=== PATIENT | female | born 1990 | race Caucasian/White ===

== ENCOUNTER 2017-08-15 18:10 | Emergency (ER) | payer OTHER ==
--- NOTE | 2017-08-15 19:45 | ER Document Report ---
ED ENT - General Chief Complaint: Sore Throat Stated Complaint: SORE THROAT,EAR PAIN Time Seen by Provider: 08/15/17 19:38 Mode of Arrival: Ambulatory Information source: Patient Notes: 26-year-old female presented to ED for complaint of cough, cold, congestion, and sore throat 2 weeks with bilateral ear pain. She states that the pain is causing it to have trouble eating and drinking. TRAVEL OUTSIDE OF THE [place] IN LAST 30 DAYS: No - HPI Patient complains to provider of: Ear problem, Nose problem, Throat problem Onset: Other - 2 weeks Onset/Duration: Intermittent Quality of pain: Other - Sore throat and body aches Severity: Moderate Pain Level: 3 Context: Recent Illness Location of pain: Nose, Sinus, Throat Associated symptoms: Cough, Ear pain, Runny nose, Sinus pain, Sore throat Similar symptoms previously: Yes Recently seen / treated by doctor: No - Related Data Allergies/Adverse Reactions: No Known Allergies Allergy (Unverified 08/15/17 18:36) Past Medical History - General Information source: Patient - Social History Smoking Status: Never Smoker Cigarette use (# per day): No Chew tobacco use (# tins/day): No Smoking Education Provided: No Frequency of alcohol use: None Drug Abuse: None Occupation: [employer] Lives with: Family Family History: CAD, CVA, DM, Hyperlipidemia, Hypertension. denies: Arthritis, COPD, Malignancy, Thyroid Disfunction Patient has suicidal ideation: No Patient has homicidal ideation: No - Past Medical History Cardiac Medical History: Reports: None Pulmonary Medical History: Reports: None EENT Medical History: Reports: None Neurological Medical History: Reports: None Endocrine Medical History: Reports: None Renal/ Medical History: Reports: None Malignancy Medical History: Reports: None GI Medical History: Reports: None Musculoskeltal Medical History: Reports None Skin Medical History: Reports None Psychiatric Medical History: Reports: None Traumatic Medical History: Reports: None Infectious Medical History: Reports: None Surgical Hx: Negative Past Surgical History: Reports: None Review of Systems - Review of Systems Constitutional: Recent illness EENT: Ear pain, Nose congestion, Nose discharge, Sinus discharge, Throat pain Cardiovascular: No symptoms reported Respiratory: Cough Gastrointestinal: No symptoms reported Genitourinary: No symptoms reported Female Genitourinary: No symptoms reported Musculoskeletal: No symptoms reported Skin: No symptoms reported Hematologic/Lymphatic: No symptoms reported Neurological/Psychological: No symptoms reported -: Yes All other systems reviewed and negative Physical Exam - Vital signs Vitals: Temp Pulse Resp BP Pulse Ox 98.2 F 88 16 125/72 98 08/15/17 18:52 08/15/17 18:52 08/15/17 18:52 08/15/17 18:52 08/15/17 18:52 Interpretation: Normal - General General appearance: Appears well, Alert - HEENT Head: Normocephalic, Atraumatic Eyes: Normal Pupils: PERRL Ears: Normal External canal: Normal Tympanic membrane: Normal Sinus: Normal Nasal: Purulent discharge, Swelling Mouth/Lips: Normal Mucous membranes: Normal Pharynx: Post nasal drainage Neck: Normal - Respiratory Respiratory status: No respiratory distress Chest status: Nontender Breath sounds: Nonproductive cough Chest palpation: Normal - Cardiovascular Rhythm: Regular Heart sounds: Normal auscultation Murmur: No - Abdominal Inspection: Normal Distension: No distension Bowel sounds: Normal Tenderness: Nontender Organomegaly: No organomegaly - Back Back: Normal, Nontender - Extremities General upper extremity: Normal inspection, Nontender, Normal color, Normal ROM , Normal temperature General lower extremity: Normal inspection, Nontender, Normal color, Normal ROM , Normal temperature, Normal weight bearing. No: Fortino's sign - Neurological Neuro grossly intact: Yes Cognition: Normal Orientation: AAOx4 [place] Coma Scale Eye Opening: Spontaneous Magda Coma Scale Verbal: Oriented [place] Coma Scale Motor: Obeys Commands [place] Coma Scale Total: 15 Speech: Normal Motor strength normal: LUE, RUE, LLE, RLE Sensory: Normal - Psychological Associated symptoms: Normal affect, Normal mood - Skin Skin Temperature: Warm Skin Moisture: Dry Skin Color: Normal Course - Re-evaluation Re-evalutation: 08/15/17 20:49 Assessment consistent with upper respiratory infection. Could not treat patient with cough and cold medicines and let us know when she was not since she has had appeared with more than a month ago. When I ran the urine to check her it showed a UTI also. Patient was treated with Macrobid for the UTI. She was treated with Claritin and Sudafed Mucinex and ibuprofen for her cough and cold symptoms with a viral sore throat. Patient was instructed to follow-up with her primary doctor. - Vital Signs Vital signs: Temp Pulse Resp BP Pulse Ox 97.6 F 84 18 116/80 100 08/15/17 20:44 08/15/17 20:44 08/15/17 20:44 08/15/17 20:44 08/15/17 20:44 - Laboratory Laboratory results interpreted by me: 08/15/17 19:52 Urine Protein 30 H Urine Blood SMALL H Urine Urobilinogen 4.0 H Ur Leukocyte Esterase LARGE H Discharge - Discharge Clinical Impression: Viral sore throat URI (upper respiratory infection) Qualifiers: URI type: unspecified URI Qualified Code(s): J06.9 - Acute upper respiratory infection, unspecified UTI (urinary tract infection) Qualifiers: Urinary tract infection type: site unspecified Hematuria presence: without hematuria Qualified Code(s): N39.0 - Urinary tract infection, site not specified Condition: Stable Disposition: HOME, SELF-CARE Instructions: Family Physicians / Practices Additional Instructions: UPPER RESPIRATORY ILLNESS: You have a viral infection of the respiratory passages -- a "cold." This common infection causes nasal congestion, drainage, and often sore throat and cough. It is highly contagious. The disease usually lasts about 10 to 14 days. There is no "cure" for the viral infection -- it must run its course. If there is a complication, such as bacterial infection in the nose, sinuses, middle ear, or bronchial tubes, antibiotics may be required. The antibiotics won't affect the virus. Drink plenty of fluids. A humidifier may help. An expectorant medication or decongestant may make you more comfortable. Use acetaminophen or ibuprofen for fever or aches. See the doctor if fever persists over two days, if there is any significant worsening of your symptoms, or if you simply fail to improve as expected. URINARY TRACT INFECTION: Your evaluation indicates that you have a urinary tract infection. This is due to germs growing in the bladder. This is a common problem. This infection usually responds quickly to antibiotics. Your antibiotic should be taken exactly as prescribed. Drink plenty of fluids -- three to four quarts a day. Occasionally, a bladder anesthetic will be prescribed to help stop the feeling of urgency until the antibiotic has a chance to clear the infection. This may cause your urine to be dark orange. Certain urine infections require a culture. If the doctor obtained a culture, the results will be back in two days. You should call to see if a change in treatment is needed. A repeat urinalysis after you finish treatment is often recommended. The physician will let you know if further testing is required. Call the doctor if you develop fever, chills, flank pain, inability to urinate, or blood in the urine. NITROFURANTOIN (MACRODANTIN, MACROBID): You have received a prescription for nitrofurantoin (Macrodantin). This antibiotic is used for urinary tract infections. Women who are or nursing should notify the physician before taking this medicine. If you have ever had a problem caused by this medication in the past, be sure the physician is aware of it. Common side effects of this medicine include nausea, vomiting, or decreased appetite. Notify your physician if these side effects become severe. Immediately stop this medicine and call the physician if you develop cough , shortness of breath, chest pain, weakness, jaundice (yellow color of the skin and whites of the eyes), or a skin rash. DECONGESTANT MEDICATION: A decongestant medicine has been prescribed. Often this medicine is combined in the same tablet with an antihistamine or expectorant. This type of medicine is helpful in treating a bad cold or sinus condition, as well as in treatment of the nasal congestion of hay fever. It is not of much benefit for lung infections. Decongestant medicines are related to stimulants. They can cause an increase in blood pressure and heart rate. Persons with heart disease and high blood pressure should not take decongestants without discussing this with the physician. If you develop palpitations, chest pain, headache, or tremors, stop the medicine and consult your physician. COUGH-SUPPRESSANT & EXPECTORANT MEDICATION: You are to use a cough medication as needed for relief of symptoms. This medicine is a combination of an expectorant (to make the mucous thinner and more easily "coughed up") and a cough suppressant (to reduce the frequency of coughing). The cough-suppressant medicine is related to narcotics. You may experience mild nausea and sleepiness. Some patients who are very sensitive to narcotics may have stomach pain from this medicine. Taking the medicine with food reduces these side effects. Do not drive or work with machinery until you know how this medicine affects you. The expectorant should have no side effects. Iodine-containing expectorants (such as organidin) should not be taken by persons with active thyroid disease unless approved by your doctor. Call the doctor if you develop shortness of breath, hives, rash, itching, lightheadedness, or severe nausea and vomiting. USE OF ACETAMINOPHEN (Tylenol): Acetaminophen may be taken for pain relief or fever control. It's much safer than aspirin, offering a wider range of "safe" dosages. It is safe during . Some brand names are Tylenol, Panadol, Datril, Anacin 3, Tempra, and Liquiprin. Acetaminophen can be repeated every four hours. The following are maximum recommended dosages: >89 pounds or adults 650 mg to 900 mg Acetaminophen can be repeated every four hours. Maximum dose not to exceed 4000 mg a day. You have been treated with Claritin, Sudafed, Mucinex, ibuprofen, and Flonase for your cough and cold symptoms. These are all [id number] medications but when you by combination cough and cold medications usually they do not have the correct doses of each medicine. You can also try salt and soda solution gargles for your sore throat which will help to remove the postnasal drip and decrease her pain. 1 quart of water 1 tablespoon of salt 1 teaspoon of baking soda Mixed 3 ingredients together and boil for 1 minute Placed in a covered quart jar Use 1/2 ounce of cold solution to gargle 3 times a day FOLLOW-UP CARE: If you have been referred to a physician for follow-up care, call the physician s office for an appointment as you were instructed or within the next two days. If you experience worsening or a significant change in your symptoms, notify the physician immediately or return to the Emergency Department at any time for re-evaluation. Prescriptions: Nitrofurantoin/Nitrofuran Mac [Macrobid 100 mg Capsule] 1 tab PO BID #20 capsule Forms: Return to Work
[2017-08-15] MEDS ORDERED: PSEUDOEPHEDRINE HCL 30 MG TABLET PO ONE (20:21)
[2017-08-15] MEDS ORDERED: LORATADINE 10 MG TABLET PO ONE (20:21)
[2017-08-15] MEDS ORDERED: IBUPROFEN 600 MG TABLET PO ONE (20:21)
[2017-08-15] MEDS ORDERED: GUAIFENESIN 600 MG TABLET.SA PO ONE (20:21)
[2017-08-15] MEDS ORDERED: FLUTICASONE NASAL SPRAY 50 MCG/SPRY 120 SPRAY/16 GM NASL ONE (20:23)
[2017-08-15 20:26] LABS: APPEARANCE,URINE CLOUDY; BILIRUBIN,URINE NEGATIVE (NEGATIVE); GLUCOSE, URINE NEGATIVE (NEGATIVE); KETONES,URINE NEGATIVE (NEGATIVE); LEUKOCYTE ESTERASE,URINE LARGE (NEGATIVE); NITRITE,URINE NEGATIVE (NEGATIVE); PROTEIN,URINE 30 mg/dL (NEGATIVE); URINE SPECIFIC GRAVITY 1.021
[2017-08-15] MEDS ORDERED: NITROFURANTOIN MONOHYD/M-CRYST 100 MG CAPSULE PO ONE (20:35)
[2017-08-15 21:08] VITALS: BP 116/80
== END 2017-08-15 20:45 | disposition home or self-care (01) ==
LOC: ER 18:10 → EDBD 18:10 → ER 20:45
DX: N39.0 Urinary tract infection, site not specified (principal); J06.9 Acute upper respiratory infection, unspecified; J02.9 Acute pharyngitis, unspecified; M79.1 Myalgia
CPT/HCPCS: 99283; 81025; 81001; J8499

== ENCOUNTER 2017-09-14 11:16 | Emergency (ER) | payer OTHER ==
[2017-09-14] MEDS ORDERED: IBUPROFEN 800 MG TABLET PO ONE (12:39)
[2017-09-14] MEDS ORDERED: GUAIFENESIN/D-METHORPHAN (200-20 MG) SYRUP 10 ML PO ONE (12:39)
[2017-09-14 13:12] LABS: A TYPE INFLUENZA AG NEGATIVE (NEGATIVE); B INFLUENZA AG POSITIVE (NEGATIVE)
--- NOTE | 2017-09-14 13:43 | ER Document Report ---
ED Flu Like - General Chief Complaint: Flu Symptoms Stated Complaint: COLD SYMPTOMS Time Seen by Provider: 09/14/17 12:38 Mode of Arrival: Ambulatory Information source: Patient Notes: Pt is a 26 year old female who presents to the ER today for sore throat, productive cough, body aches, fever for 3 days. She admits the the chills/ body aches are the worst and admits to congestion. She hasn't had her flu shot this year. She hasn't tried anything at home for her symptoms. She couldn't take her temperature at home as she had no thermometer. She denies n/v/d. TRAVEL OUTSIDE OF THE [place] IN LAST 30 DAYS: No - Related Data Allergies/Adverse Reactions: No Known Allergies Allergy (Verified 09/14/17 11:18) Past Medical History - General Information source: Patient - Social History Smoking Status: Never Smoker Chew tobacco use (# tins/day): No Frequency of alcohol use: None Drug Abuse: None Family History: CAD, CVA, DM, Hyperlipidemia, Hypertension. denies: Arthritis, COPD, Malignancy, Thyroid Disfunction Patient has suicidal ideation: No Patient has homicidal ideation: No Renal/ Medical History: Denies: Hx Peritoneal Dialysis Review of Systems - Review of Systems Constitutional: See HPI EENT: See HPI Cardiovascular: No symptoms reported Respiratory: See HPI Gastrointestinal: No symptoms reported Genitourinary: No symptoms reported Female Genitourinary: No symptoms reported Musculoskeletal: See HPI Skin: No symptoms reported Hematologic/Lymphatic: No symptoms reported Neurological/Psychological: No symptoms reported Physical Exam - Vital signs Vitals: Temp Pulse Resp BP Pulse Ox 100.1 F 122 H 16 121/79 97 09/14/17 11:36 09/14/17 11:36 09/14/17 11:36 09/14/17 11:36 09/14/17 11:36 - Notes Notes: PHYSICAL EXAMINATION: GENERAL: mildly ill appearing, but in no acute distress. HEAD: Atraumatic, normocephalic. EYES: Pupils equal round and reactive to light, extraocular movements intact, sclera anicteric, conjunctiva are normal. ENT: nares with mucoid discharge, oropharynx erythematous without enlarged tonsils, normal ear canals without foreign body or erythema, TMs pearly link with good cone of light, NECK: Normal range of motion, supple without lymphadenopathy LUNGS: cough, otherwise CTAB and equal. No wheezes rales or rhonchi. HEART: tachycardic with regular rhythm without murmurs ABDOMEN: Soft, no tenderness. No guarding, no rebound BACK: no vertebral tenderness, normal ROM GI/: no CVA tenderness EXTREMITIES: Normal range of motion, no pitting edema. No cyanosis. NEUROLOGICAL:cranial nerves grossly intact, normal motor and sensory exam PSYCH: Normal mood, normal affect. SKIN: Warm, Dry, normal turgor, no rashes or lesions noted Course - Re-evaluation Re-evalutation: 09/15/17 19:57 Pt positive for flu b. still tachycardic when I went to d/c here the first time , she was also febrile then on temperature recheck, she's had motrin so we gave her tylenol and po fluids. after about 45 minutes, her temperature was normal and pulse was normal. she will go home with symptomatic treatment, cough medication, motrin 800 and advised to rest and drink fluids. She's out of the window for tamiflu. - Vital Signs Vital signs: Temp Pulse Resp BP Pulse Ox 98.7 F 121 H 16 117/68 98 09/14/17 15:06 09/14/17 15:06 09/14/17 15:06 09/14/17 15:06 09/14/17 15:06 Discharge - Discharge Clinical Impression: Flu Condition: Stable Disposition: HOME, SELF-CARE Additional Instructions: Please return with any worsening symptoms. Rest, drink plenty of fluids. Follow up with your primary care provider. Prescriptions: Hydrocodone Bit/Homatropine [Hycodan Syrup 5-1.5 mg/5 ml Ud Cup] 5 ml PO Q4HP PRN #120 ml PRN Reason: Ondansetron [Zofran Odt 4 mg Tablet] 4 mg PO Q4HP PRN #30 tab.rapdis PRN Reason: Ibuprofen [Motrin 800 mg Tablet] 800 mg PO Q8H PRN #30 tab PRN Reason: Forms: Return to Work
[2017-09-14] MEDS ORDERED: ACETAMINOPHEN 325 MG TABLET PO ONE (13:50)
[2017-09-14 15:10] VITALS: BP 117/68
== END 2017-09-14 15:10 | disposition home or self-care (01) ==
LOC: ER 11:16
DX: J11.1 Influenza due to unidentified influenza virus with other respiratory manifestations (principal); R05 Cough; R50.9 Fever, unspecified; J34.89 Other specified disorders of nose and nasal sinuses
CPT/HCPCS: 99283; 87804; J3490

== ENCOUNTER 2018-07-19 23:21 | Emergency (ER) | payer OTHER ==
--- NOTE | 2018-07-19 23:54 | ER Document Report ---
ED General - General Chief Complaint: Eye Problem Stated Complaint: LEFT EYE PAIN Time Seen by Provider: 07/19/18 23:53 Notes: Patient is a 27-year-old female that presents to the emergency department for chief complaint of left eye redness and drainage. Patient states that around 3 PM today, she is noticed that her left eye was red and swollen, and draining green discharge. She states that seem to get worse over this period of time. She had placed warm compresses to try to help with it. She also took 2 over-the -counter Benadryl. She denies prior issues with her eyes, does not wear contacts. Denies noting any fevers, chills, night sweats. She is very anxious about this. She states it is painful around her eye across her eyebrow, and along her cheek bone. She describes the pain as a 4 out of 10, aching constant sensation. Past Medical History: Denies chronic medical conditions Past Surgical History: Denies surgical history Social History: Denies tobacco, alcohol or drug use. Family History: Reviewed and noncontributory for presenting illness Allergies: Reviewed, see documented allergy list. REVIEW OF SYSTEMS: Other than noted above, the 12 point review of systems was reviewed with the patient and were negative, all pertinent findings are included in the HPI. PHYSICAL EXAMINATION: Vital signs reviewed, nursing noted reviewed. GENERAL: Well-appearing, well-nourished and appears anxious HEAD: Atraumatic, normocephalic. EYES: Left eye: Injective conjunctiva, with periorbital tenderness, and mild edema, without significant erythema, no pain with extraocular eye movements, PERRLA, there is yellow-green discharge from the left conjunctiva, the right eye appears unremarkable. ENT: nares patent, oropharynx clear without exudates. Moist mucous membranes. NECK: Normal range of motion, supple without lymphadenopathy LUNGS: Breath sounds clear to auscultation bilaterally and equal. No wheezes rales or rhonchi. HEART: Heart rate tachycardic, regular rhythm ABDOMEN: Soft, nontender, normoactive bowel sounds. No rebound, guarding, or rigidity. No masses appreciated. EXTREMITIES: Nontender, good range of motion, no pitting or edema. NEUROLOGICAL: No focal neurological deficits. Moves all extremities spontaneously Motor and sensory grossly intact on exam. PSYCH: Anxious on exam, but appropriate and answering questions SKIN: Warm, Dry, normal turgor, no rashes or lesions noted on exposed skin TRAVEL OUTSIDE OF THE [place] IN LAST 30 DAYS: No - Related Data Allergies/Adverse Reactions: No Known Allergies Allergy (Verified 09/14/17 11:18) Past Medical History - Social History Smoking Status: Never Smoker Family History: CAD, CVA, DM, Hyperlipidemia, Hypertension. denies: Arthritis, COPD, Malignancy, Thyroid Disfunction Renal/ Medical History: Denies: Hx Peritoneal Dialysis Physical Exam - Vital signs Vitals: Temp Pulse Resp BP Pulse Ox 98.7 F 110 H 18 137/73 H 100 07/19/18 23:21 07/19/18 23:21 07/19/18 23:21 07/19/18 23:21 07/19/18 23:21 Course - Re-evaluation Re-evalutation: Patient seen and examined vital signs reviewed. Laboratory data and imaging were ordered as appropriate for the patient's presenting symptoms and complaint, with consideration of any critical or life threatening conditions that may be associated with their obtained history and exam as noted above. Patient was treated with IV fluids, and Ancef, and a dose of p.o. Bactrim Results were reviewed when available and demonstrated leukocytosis of 17,000, BMP was unremarkable, I performed a slit lamp exam, with fluorescein dye, no corneal abrasion was noted, no flare noted either. The patient was re-evaluated and was improved, I discussed with the patient at length, return precautions, as this could evolve into orbital cellulitis, but at this time it appears to be periorbital/preseptal cellulitis, she will be prescribed Bactrim, and Keflex, to take, she is advised if her symptoms worsen in any way, the swelling worsens, or pain worsens or she develops pain with extraocular eye movement, that she needs to immediately return to the emergency department, patient was attentive, and did agree to this plan of care. She was also advised to use warm compresses on her left eye. Evaluation was most consistent with preseptal/periorbital cellulitis of the left eye. Results were discussed with the patient at this point, after careful consideration I feel that that patient can be discharged from the emergency department, the patient was educated treatments and reasons to return to the emergency department based on their presumed diagnosis as noted above, they were advised to followup with a primary care physician in 2-3 days. Patient was agreeable to plan of care. *Note is created using voice recognition software and may contain spelling, syntax or grammatical errors. Laboratory 07/20/18 07/20/18 07/20/18 00:40 00:40 01:12 WBC 17.5 H RBC 4.87 Hgb 12.8 Hct 38.0 MCV 78 L MCH 26.2 L MCHC 33.6 RDW 15.0 H Plt Count 380 Seg Neutrophils % 83.0 H Lymphocytes % 11.0 L Monocytes % 4.5 Eosinophils % 1.2 Basophils % 0.3 Absolute Neutrophils 14.5 H Absolute Lymphocytes 1.9 Absolute Monocytes 0.8 Absolute Eosinophils 0.2 Absolute Basophils 0.1 Sodium Cancelled 141.6 Potassium Cancelled 4.0 Chloride Cancelled 100 Carbon Dioxide Cancelled 25 Anion Gap Cancelled 17 BUN Cancelled 12 Creatinine Cancelled 0.74 Est GFR ( Amer) Cancelled > 60 Est GFR (Non-Af Amer) Cancelled > 60 Glucose Cancelled 141 H Calcium Cancelled 10.0 - Vital Signs Vital signs: Temp Pulse Resp BP Pulse Ox 99.8 F 65 20 120/79 99 07/20/18 02:23 07/20/18 02:23 07/20/18 02:23 07/20/18 02:23 07/20/18 02:23 - Laboratory Result Diagrams: 07/20/18 00:40 07/20/18 01:12 Laboratory results interpreted by me: 07/20/18 07/20/18 00:40 01:12 WBC 17.5 H MCV 78 L MCH 26.2 L RDW 15.0 H Seg Neutrophils % 83.0 H Lymphocytes % 11.0 L Absolute Neutrophils 14.5 H Glucose 141 H Discharge - Discharge Clinical Impression: Preseptal cellulitis of left eye Leukocytosis Qualifiers: Leukocytosis type: unspecified Qualified Code(s): D72.829 - Elevated white blood cell count, unspecified Condition: Stable Disposition: HOME, SELF-CARE Instructions: Cellulitis ([facility]) Additional Instructions: Please be closely monitoring her symptoms, if you have any pain with looking around the room, or your pain is not improving or swelling and redness worsen, please immediately return to the emergency department to be reevaluated. Please take the antibiotics as prescribed. Prescriptions: Cephalexin Monohydrate [Keflex 500 mg Capsule] 500 mg PO Q6H 7 Days #28 capsule Sulfamethoxazole/Trimethoprim [Bactrim Ds Tablet] 1 each PO BID #14 tablet Referrals: LLOYD JOHNSON MD [ACTIVE STAFF] - Follow up in 3-5 days (or your primary care. )
[2018-07-20] MEDS ORDERED: NORMAL SALINE 1000 ML 1,000 ML IV ONE (00:21)
[2018-07-20] MEDS ORDERED: CEFAZOLIN INJ 1 GM VIAL IV ONE ×2 (00:23→00:33)
[2018-07-20] MEDS ORDERED: TETRACAINE HCL 0.5% OPH SOLN 4 ML OU ONE (00:25)
[2018-07-20] MEDS ORDERED: CEFAZOLIN INJ 1 GM VIAL ONE (00:33)
[2018-07-20 00:52] LABS: ABSOLUTE BASOPHILS # (AUTO) 0.1 10^3/uL (0.0-0.2); ABSOLUTE EOSINOPHILS # (AUTO) 0.2 10^3/uL (0.0-0.6); ABSOLUTE LYMPHOCYTES (AUTO) 1.9 10^3/uL (0.5-4.7); ABSOLUTE MONOCYTES (AUTO) 0.8 10^3/uL (0.1-1.4); ABSOLUTE NEUT (AUTO) 14.5 10^3/uL (1.7-8.2); BASOPHILS % (AUTO) 0.3 % (0-2); EOSINOPHILS % (AUTO) 1.2 % (0-6); HEMOGLOBIN 12.8 g/dL (12.0-15.5); MEAN CORPUSCULAR HEMOGLOBIN 26.2 pg (27.0-33.4); MEAN CORPUSCULAR HGB CONC 33.6 g/dL (32.0-36.0); MEAN CORPUSCULAR VOLUME 78 fl (80-97); MONOCYTES % (AUTO) 4.5 % (3-13); PLATELET COUNT 380 10^3/uL (150-450); RED BLOOD COUNT 4.87 10^6/uL (3.72-5.28); TOTAL CELLS COUNTED % (AUTO) 100 %; WHITE BLOOD COUNT 17.5 10^3/uL (4.0-10.5)
[2018-07-20 01:32] LABS: ANION GAP 17 (5-19); BLOOD UREA NITROGEN 12 mg/dL (7-20); CARBON DIOXIDE 25 mmol/L (22-30); CHLORIDE 100 mmol/L (98-107); GLUCOSE 141 mg/dL (75-110); SODIUM 141.6 mmol/L (137-145)
[2018-07-20] MEDS ORDERED: SULFAMETHOXAZOLE/TRIMETHOPRIM 800-160 MG TABLET PO ONE (01:33)
[2018-07-20 02:25] VITALS: BP 120/79
== END 2018-07-20 02:25 | disposition home or self-care (01) ==
LOC: ER 23:21
DX: L03.213 Periorbital cellulitis (principal); D72.829 Elevated white blood cell count, unspecified; R00.0 Tachycardia, unspecified
CPT/HCPCS: 99282; 36415; 85025; 80048; J0690; J7030; J3490